=== PATIENT | female | born 1955 | race African-American/Black ===

== ENCOUNTER 2021-06-28 12:58 | Outpatient (CLI) | payer OTHER, SELFPAY ==
--- NOTE | ~2021-06-28 | XR_ITS ---
EXAMINATION: XR ribs RT 2V DATE: 06/28/2021 13:23 INDICATION: Right chest wall pain. TECHNIQUE: 2 views of the right ribs on 3 radiographs were obtained. COMPARISON: None. FINDINGS: There is mild atelectasis in right lower lung zone. No right-sided pleural effusion or pneu mothorax. Surgical clips in the right upper quadrant are likely from cholecystectomy. IMPRESSION: 1. No rib fracture. Reviewed, dictated and finalized at location A. IMPRESSION: 1. No rib fracture.
== END 2021-06-28 12:59 | disposition home or self-care (01) ==
LOC: ANHIMG 13:03
PROVIDERS: PCP Family Medicine; Visit Provider Family Medicine
DX: R07.89 Other chest pain (principal)
CPT/HCPCS: 71100

== ENCOUNTER 2021-07-25 08:17 | Outpatient (CLI) | payer OTHER, SELFPAY ==
--- NOTE | ~2021-07-25 | US_ITS ---
EXAMINATION: US soft tissue chest DATE: 07/25/2021 08:45 INDICATION: Palpable abnormality along the lateral right chest TECHNIQUE: Multiple grayscale and Doppler ultrasound images of the region of concern at the lateral r ight chest were obtained. COMPARISON: None FINDINGS: Normal appearance to the subcutaneous fat overlying the ribs at the lateral right chest wall at the r egion of concern. No abnormal masses or fluid collections identified. IMPRESSION: 1. Normal study. No correlate for reported palpable abnormality at the lateral right chest. Reviewed, dictated and finalized at location A.
== END 2021-07-25 08:18 | disposition home or self-care (01) ==
PROVIDERS: PCP Family Medicine; Visit Provider Family Medicine
DX: R22.2 Localized swelling, mass and lump, trunk (principal)
CPT/HCPCS: 76604